=== PATIENT | male | born 1980 | race Caucasian/White ===

== ENCOUNTER 2019-04-03 15:12 | Inpatient (IN) | payer OTHER ==
[2019-04-03 18:23] VITALS: BMI 19.5
--- NOTE | 2019-04-03 18:34 | HP ---
CIWA Score - Admission Criteria OASAS Guidelines: Admission for Medically Managed Detox: Requires at least one of the followin. CIWA greater than 12 2. Seizures within the past 24 hours 3. Delirium tremens within the past 24 hours 4. Hallucinations within the past 24 hours 5. Acute intervention needed for co occurring medical disorder 6. Acute intervention needed for co occurring psychiatric disorder 7. Severe withdrawal that cannot be handled at a lower level of care (continued vomiting, continued diarrhea, abnormal vital signs) requiring intravenous medication and/or fluids 8. Admission ROS BHS - HPI Chief Complaint: I am here for rehab because I need help. Allergies/Adverse Reactions: Allergies Allergy/AdvReac Type Severity Reaction Status Date / Time cashew nut Allergy Severe Swelling Verified 04/03/19 18:10 sertraline [From Zoloft] Allergy Severe Verified 04/03/19 18:10 haloperidol [From Haldol] AdvReac Intermediate Verified 04/03/19 18:10 History of Present Illness: pt was in [facility] 04/01/19 and discharged today for hallucination pt has d/c papers to indicate he is on lithium and zyprexa today however, pt is on paliperidone last received on 03/30/19. pt was placed on paliperidone by his pcp because he is hep c and didnt want to affect his liver any further. Exam Limitations: No Limitations - Ebola screening Have you traveled outside of the country in the last 21 days: No (N) Have you had contact with anyone from an Ebola affected area: No Have you been sick,other than usual withdrawal symptoms: No Do you have a fever: No - Review of Systems Constitutional: Changes in sleep, Unintentional Wgt. Loss EENT: reports: No Symptoms Reported Respiratory: reports: Cough, Productive cough (greenish/yellowish) Cardiac: reports: Lightheadedness GI: reports: Constipated, Poor Fluid Intake : reports: Burning Musculoskeletal: reports: Back Pain, Joint Pain Integumentary: reports: No Symptoms Reported Neuro: reports: Headache Endocrine: reports: No Symptoms Reported Hematology: reports: No Symptoms Reported Psychiatric: reports: Judgement Intact, Mood/Affect Appropiate, Orientated x3, Agitated, Anxious Other Systems: Reviewed and Negative Patient History - Patient Medical History Hx Anemia: No Hx Asthma: No Hx Chronic Obstructive Pulmonary Disease (COPD): No Hx Cancer: No Hx Cardiac Disorders: No Hx Congestive Heart Failure: No Hx Hypertension: No Hx Hypercholesterolemia: No Hx Pacemaker: No HX Cerebrovascular Accident: No Hx Seizures: No Hx Dementia: No Hx Diabetes: No Hx Gastrointestinal Disorders: No Hx Liver Disease: No Hx Genitourinary Disorders: No Hx Sexually Transmitted Disorders: No Hx Renal Disease (ESRD): No Hx Thyroid Disease: No Hx Human Immunodeficiency Virus (HIV): No (pt denies) Hx Hepatitis C: Yes (no treatment received yet) Hx Depression: Yes Hx Suicide Attempt: Yes (2003 last tried to hurt self by drug OD. denies any S/ H ideations today) Hx Bipolar Disorder: Yes Hx Schizophrenia: Yes - Patient Surgical History Past Surgical History: No - PPD History Previous Implant?: Yes Documented Results: Negative w/o proof PPD to be Administered?: Yes - Reproductive History Patient is a Female of Child Bearing Age (11 -55 yrs old): No - Smoking Cessation Smoking history: Current every day smoker Have you smoked in the past 12 months: Yes Aproximately how many cigarettes per day: 10 Hx Chewing Tobacco Use: No Initiated information on smoking cessation: Yes 'Breaking Loose' booklet given: 04/03/19 - Substance & Tx. History Hx Alcohol Use: No Hx Substance Use: Yes Substance Use Type: Cocaine, Heroin Hx Substance Use Treatment: Yes (cannot remember when/where.) - Substances abused Heroin Substance route: Inhalation Frequency: Daily Amount used: 6 bags Age of first use: 23 Date of last use: 03/27/19 Crack Substance route: Smoking Frequency: Daily Amount used: $150 worth Age of first use: 20 Date of last use: 03/27/19 Family Disease History - Family Disease History Family History: Denies Admission Physical Exam S - Vital Signs Vital Signs: Vital Signs - 24 hr 04/03/19 18:09 Temperature 98.5 F Pulse Rate 78 Respiratory 18 Rate Blood Pressure 120/74 - Physical General Appearance: Yes: Appropriately Dressed, Moderate Distress, Thin, Irritable, Anxious HEENTM: Yes: Hearing grossly Normal, Normal Voice, Rhinorrhea Respiratory: Yes: Lungs Clear, Normal Breath Sounds, No Respiratory Distress Neck: Yes: Within Normal Limits Breast: Yes: Within Normal Limits Cardiology: Yes: Regular Rhythm, Regular Rate, S1, S2 Abdominal: Yes: Normal Bowel Sounds, Non Tender, Soft Genitourinary: Yes: Within Normal Limits Back: Yes: Normal Inspection Musculoskeletal: Yes: Back pain, Muscle Pain Extremities: Yes: Normal Capillary Refill, Normal Inspection Neurological: Yes: Fully Oriented, Alert, Normal Response Integumentary: Yes: Normal Color, Track Turner (pt also IVD when he choose too besides sniff.) Lymphatic: Yes: Within Normal Limits - Diagnostic (1) Heroin abuse Current Visit: Yes Status: Chronic (2) Crack cocaine use Current Visit: Yes Status: Chronic (3) Nicotine dependence Current Visit: Yes Status: Chronic Qualifiers: Nicotine product type: cigarettes Substance use status: uncomplicated Qualified Code(s): F17.210 - Nicotine dependence, cigarettes, uncomplicated Cleared for Admission S - Detox or Rehab [facility] Level of Care: Medically Managed Claeared for Rehab Admission: Yes Inpatient Rehab Admission - Rehab Decision to Admit Inpatient rehab admission?: Yes - Initial Determination Are CD services needed?: Yes Free of communicable disease: Yes Not in need of hospitalization: Yes - Rehab Admission Criteria Previous failed treatment: Yes Poor recovery environment: Yes Comorbidities: Yes Lacks judgement: Yes Patient is meeting Inpatient Rehab admission criteria:: Yes
[2019-04-03] MEDS ORDERED: MAGNESIUM CITRATE 300 ML BOTTLE PO PRN (18:55)
[2019-04-03] MEDS ORDERED: ACETAMINOPHEN 325 MG TABLET (FP) PO PRN (18:55)
[2019-04-03] MEDS ORDERED: MENTHOL/PHENOL 1 EACH UD MM PRN (18:55)
[2019-04-03] MEDS ORDERED: LOPERAMIDE HCL 2 MG CAPSULE PO PRN (18:55)
[2019-04-03] MEDS ORDERED: NICOTINE POLACRILEX 4 MG GUM BC PRN (18:55)
[2019-04-03] MEDS ORDERED: MAG HYDROX/AL HYDROX/SIMETH 30 ML UNIT-DOSE CUP PO PRN (18:55)
[2019-04-03] MEDS ORDERED: guaiFENesin 200 MG/10 ML 10 ML UNIT-DOSE CUPS PO PRN (18:55)
[2019-04-03] MEDS ORDERED: IBUPROFEN 400 MG TABLET (FP) PO PRN (18:55)
[2019-04-03] MEDS ORDERED: MAGNESIUM HYDROX 2400MG/30ML ORAL SUSPENSION 30 ML CUP PO PRN (18:55)
[2019-04-03] MEDS ORDERED: P-EPHED 60MG/TRIPROLIDI 2.5MG TABLET PO PRN (18:55)
[2019-04-03] MEDS ORDERED: TUBERCULIN PPD 5 TU/0.1ML VIAL ID ONE ×2 (20:43→23:41)
[2019-04-03] MEDS: THIAMINE HCL 100 MG TABLET (FP) PO SCH (21:10)
[2019-04-03] MEDS ORDERED: MELATONIN 5 MG TABLETS PO PRN (22:00)
[2019-04-04 09:40] LABS: HEMATOCRIT 47.2 % (35.4-49); HEMOGLOBIN 15.7 GM/dL (11.7-16.9); MCH 31.7 pg (25.7-33.7); MCHC 33.2 g/dl (32.0-35.9); MEAN CELL VOLUME 95.6 fl (80-96); PLATELET COUNT 275 K/MM3 (134-434); RBC 4.94 M/mm3 (4.00-5.60); RDW 14.9 % (11.9-15.9); WHITE BLOOD COUNT 6.9 K/mm3 (4.0-10.0)
[2019-04-04 09:59] LABS: ALBUMIN 3.8 g/dl (3.4-5.0); BILIRUBIN,TOTAL 1.1 mg/dL (0.2-1); CALCIUM 9.3 mg/dL (8.5-10.1); CREATININE 0.8 mg/dL (0.55-1.3); POTASSIUM 4.2 mmol/L (3.5-5.1)
[2019-04-04] MEDS: PRENATAL VITAMINS W/ FOLIC ACID TABLET (FP) PO SCH (09:59)
[2019-04-04] MEDS: NICOTINE 21 MG/24 HOURS TOPICAL PATCH TD SCH (09:59)
--- NOTE | 2019-04-04 17:19 | EKG ---
Test Reason : Blood Pressure : / mmHG Vent. Rate : 068 BPM Atrial Rate : 068 BPM P-R Int : 130 ms QRS Dur : 098 ms QT Int : 442 ms P-R-T Axes : 055 035 049 degrees QTc Int : 469 ms NORMAL SINUS RHYTHM NORMAL ECG NO PREVIOUS ECGS AVAILABLE Confirmed by SHANTELL MANN MD ([id number]) on 04/04/2019 5:19:28 PM Referred By: Confirmed By:SHANTELL MANN MD
[2019-04-04] MEDS: THIAMINE HCL 100 MG TABLET (FP) PO SCH (21:16)
[2019-04-05] MEDS: NICOTINE 21 MG/24 HOURS TOPICAL PATCH TD SCH (10:28)
[2019-04-05] MEDS: hydrOXYzine PAMOATE 50 MG CAPSULE (FP) PO PRN (10:28)
[2019-04-05] MEDS: PRENATAL VITAMINS W/ FOLIC ACID TABLET (FP) PO SCH (10:28)
--- NOTE | 2019-04-05 13:47 | CONSULT ---
[facility] Psychiatric Consult - Data Date of interview: 04/05/19 Admission source: [facility]. Court-mandated. Identifying data: Direct admission to [address] for this 39 y/o male, court-mandated for substance abuse treatment (heroin, cannabis, cocaine). Co-morbidity : schizoaffective disorder. Patient is single, no dependents, homeless, unemployed and deprived of income. Substance Abuse History: Confirmed by patient in this session. Smoking history: Current every day smoker. Have you smoked in the past 12 months: Yes. Aproximately how many cigarettes per day: 10. Hx Chewing Tobacco Use: No. Initiated information on smoking cessation: Yes. 'Breaking Loose' booklet given : 04/03/19. - Substance & Tx. History. Hx Alcohol Use: No. Hx Substance Use: Yes. Substance Use Type: Cocaine, Heroin. Hx Substance Use Treatment: Yes ( cannot remember when/where.). - Substances abused. Heroin. Substance route : Inhalation. Frequency: Daily. Amount used: 6 bags. Age of first use: 23. Date of last use: 03/27/19. Crack. Substance route: Smoking. Frequency: Daily. Amount used: $150 worth. Age of first use: 20. Date of last use: 03/27 Medical History: Hepatitis C. Psychiatric History: First psychiatric hospitalization : age 17. Diagnosed with Schizoaffective Disorder. Medicated with lithium + paliperidone (primary care physician). No psychiatric OPD care. Mutiple psychiatric hospitalizations ( [facility], [facility], [facility]). Mr Cruz admits to one suicide attempt via overdose with zolpidem (2003). Currently on methadone maintenance (40 mg/day). Physical/Sexual Abuse/Trauma History: Patient denies. Additional Comment: No toxicology available. Mental Status Exam - Mental Status Exam Alert and Oriented to: Time, Place, Person Cognitive Function: Grossly Intact Patient Appearance: Well Groomed (tall stature, emaciated) Mood: Nervous, Withdrawn Affect: Mood Congruent, Constricted Patient Behavior: Fatigued, Cooperative Speech Pattern: Clear Voice Loudness: Normal Thought Process: Goal Oriented Thought Disorder: Not Present Hallucinations: Denies Suicidal Ideation: Denies Homicidal Ideation: Denies Insight/Judgement: Poor Sleep: Poorly, Difficulty falling asleep Appetite: Poor, Weight loss Muscle strength/Tone: Normal Gait/Station: Normal Psychiatric Findings - Problem List ([place] 1, 2,3) (1) Opioid dependence on agonist therapy Current Visit: Yes Status: Chronic (2) Cocaine dependence Current Visit: Yes Status: Chronic (3) Cannabis abuse Current Visit: Yes Status: Chronic (4) Nicotine dependence Current Visit: Yes Status: Chronic Qualifiers: Nicotine product type: cigarettes Substance use status: uncomplicated Qualified Code(s): F17.210 - Nicotine dependence, cigarettes, uncomplicated (5) Schizoaffective disorder Current Visit: Yes Status: Chronic (6) Substance induced mood disorder Current Visit: Yes Status: Chronic (7) Non-compliance Current Visit: Yes Status: Chronic - Initial Treatment Plan Initial Treatment Plan: Psychoeducation. Sleep hygiene. Support. [place] level requested. AA/NA meetings. Observation.
[2019-04-05 17:03] LABS: PH,URINE 8.5 (5.0-8.0); URINE APPEARANCE CLEAR; URINE BILIRUBIN NEGATIVE (NEGATIVE); URINE COLOR YELLOW; URINE GLUCOSE (UA) NEGATIVE (NEGATIVE); URINE KETONE NEGATIVE (NEGATIVE); URINE LEUK ESTERASE NEGATIVE (NEGATIVE); URINE NITRITE NEGATIVE (NEGATIVE); URINE PROTEIN NEGATIVE (NEGATIVE); URINE UROBILINOGEN 0.2 mg/dL (0.2-1.0)
[2019-04-05] MEDS: THIAMINE HCL 100 MG TABLET (FP) PO SCH (21:27)
[2019-04-06] MEDS: PRENATAL VITAMINS W/ FOLIC ACID TABLET (FP) PO SCH (09:30)
[2019-04-06] MEDS: NICOTINE 21 MG/24 HOURS TOPICAL PATCH TD SCH (09:30)
[2019-04-06] MEDS: THIAMINE HCL 100 MG TABLET (FP) PO SCH (21:11)
[2019-04-07] MEDS: NICOTINE 21 MG/24 HOURS TOPICAL PATCH TD SCH (09:32)
[2019-04-07] MEDS: PRENATAL VITAMINS W/ FOLIC ACID TABLET (FP) PO SCH (09:32)
[2019-04-07] MEDS: THIAMINE HCL 100 MG TABLET (FP) PO SCH (21:11)
[2019-04-08 07:23] VITALS: TEMP 98.1
[2019-04-08] MEDS: PRENATAL VITAMINS W/ FOLIC ACID TABLET (FP) PO SCH (10:16)
[2019-04-08] MEDS: NICOTINE 21 MG/24 HOURS TOPICAL PATCH TD SCH (10:16)
[2019-04-08] MEDS: THIAMINE HCL 100 MG TABLET (FP) PO SCH (21:10)
[2019-04-09] MEDS ORDERED: PANTOPRAZOLE 20 MG TABLET (FP) PO ONE (01:23)
[2019-04-09] MEDS ORDERED: cloNIDine HCL 0.1 MG TABLET PO ONE (01:29)
[2019-04-09] MEDS: hydrOXYzine PAMOATE 50 MG CAPSULE (FP) PO PRN (01:41)
--- NOTE | 2019-04-09 02:32 | DS ---
[facility] Detox Discharge Summary Admission Date: 04/03/19 Discharge Date: 04/09/19 - History Present History: Cannabis Dependence, Cocaine Dependence, Opioid Dependence Additional Comments: CLIENT SIGNING OUT AMA DESPITE ALL ATTEMPTS TO HAVE CLIENT RECONSIDER AND CONTINUE TXMENT. CLIENT STATES HE WANTS TO LEAVE AND NO LONGER WANTS TO CONTINUE TXMENT. HE IS A/O X3 AGGITATED. DENIES SI/HI/AVH AT THIS TIME. AYMPTOMATIC ELEVATED B/P-RELATED TO PT BEING AGITATED - Physical Exam Results Vital Signs: Vital Signs Temperature 98.1 F 04/08/19 06:30 Pulse Rate 65 04/08/19 06:30 Respiratory Rate 18 04/09/19 00:30 Blood Pressure 151/89 04/08/19 06:30 O2 Sat by Pulse Oximetry (%) Pertinent Admission Physical Exam Findings: s/p detox transfered from [facility] for rehab - Treatment Hospital Course: Discharged Condition Good - Medication Discharge Medications: Ambulatory Orders [place] Carbonate [Eskalith -] 600 mg PO BID 04/03/19 Paliperidone [Paliperidone ER] 6 mg PO DAILY 04/03/19 - Diagnosis (1) Cannabis abuse Current Visit: Yes Status: Chronic (2) Cocaine dependence Current Visit: Yes Status: Chronic (3) Crack cocaine use Current Visit: Yes Status: Chronic (4) Nicotine dependence Current Visit: Yes Status: Chronic Qualifiers: Nicotine product type: cigarettes Substance use status: uncomplicated Qualified Code(s): F17.210 - Nicotine dependence, cigarettes, uncomplicated (5) Schizoaffective disorder Current Visit: Yes Status: Chronic (6) Substance induced mood disorder Current Visit: Yes Status: Chronic (7) Heroin abuse Current Visit: Yes Status: Chronic (8) Non-compliance Current Visit: Yes Status: Chronic - AMA Did Patient Leave Against Medical Advice: Yes
--- NOTE | 2019-04-09 02:37 | PN ---
[facility] Progress Note Note: [facility] Discharge Summary Patient Name: KILO MILLER Date of : 78 Patient Status: Inpatient Attending Provider: Camila Hartman Date: 04/09/19 02:31 Initialization Date: 04/09/19 02:31 [facility] Discharge Summary Admission Date: 04/03/19 Discharge Date: 04/09/19 - History Present History: Cannabis Dependence, Cocaine Dependence, Opioid Dependence Additional Comments: CLIENT SIGNING OUT AMA DESPITE ALL ATTEMPTS TO HAVE CLIENT RECONSIDER AND CONTINUE TXMENT. CLIENT STATES HE WANTS TO LEAVE AND NO LONGER WANTS TO CONTINUE TXMENT. HE IS A/O X3 AGITATED. DENIES SI/HI/AVH AT THIS TIME. ASYMPTOMATIC ELEVATED B/P-POSSIBLY RELATED TO PT BEING AGITATED. D/W CLIENT RISK FOR OVERDOSE AND POSSIBLE AND DECREASE TOLERANCE. CLIENT VERBALIZES UNDERSTANDING AND ACCEPTS RISKS. DECLINES NARCAN KIT. "I WANT TO LEAVE" - Physical Exam Results Vital Signs: Vital Signs Temperature 98.1 F 04/08/19 06:30 Pulse Rate 58 L 04/09/19 01:25 Respiratory Rate 18 04/09/19 00:30 Blood Pressure 153/98 04/09/19 01:25 O2 Sat by Pulse Oximetry (%) Pertinent Admission Physical Exam Findings: [facility] Laboratory Tests 04/04/19 04/04/19 04/04/19 07:55 07:55 07:55 WBC 6.9 RBC 4.94 Hgb 15.7 Hct 47.2 MCV 95.6 MCH 31.7 MCHC 33.2 RDW 14.9 Plt Count 275 MPV 10.0 Sodium 139 Potassium 4.2 Chloride 107 Carbon Dioxide 29 Anion Gap 3 L BUN 5 L Creatinine 0.8 Est GFR (CKD-EPI)AfAm 129.51 Est GFR (CKD-EPI)NonAf 111.74 Random Glucose 91 Calcium 9.3 Total Bilirubin 1.1 H AST 29 ALT 76 H Alkaline Phosphatase 120 H Total Protein 7.0 Albumin 3.8 Urine Color Urine Appearance Urine pH Ur Specific [place] Urine Protein Urine Glucose (UA) Urine Ketones Urine Blood Urine Nitrite Urine Bilirubin Urine Urobilinogen Ur Leukocyte Esterase [place] RPR Titer Nonreactive 04/05/19 04/06/19 10:45 09:00 WBC RBC Hgb Hct MCV MCH MCHC RDW Plt Count MPV Sodium Potassium Chloride Carbon Dioxide Anion Gap BUN Creatinine Est GFR (CKD-EPI)AfAm Est GFR (CKD-EPI)NonAf Random Glucose Calcium Total Bilirubin AST ALT Alkaline Phosphatase Total Protein Albumin Urine Color Yellow Urine Appearance Clear Urine pH 8.5 H Ur Specific [place] 1.016 Urine Protein Negative Urine Glucose (UA) Negative Urine Ketones Negative Urine Blood Negative Urine Nitrite Negative Urine Bilirubin Negative Urine Urobilinogen 0.2 Ur Leukocyte Esterase Negative [place] 0.4 L RPR Titer - Treatment Hospital Course: Discharged Condition Good - Medication Discharge Medications: Ambulatory Orders [place] Carbonate [Eskalith -] 600 mg PO BID 04/03/19 Paliperidone [Paliperidone ER] 6 mg PO DAILY 04/03/19 - Diagnosis (1) Cannabis abuse Current Visit: Yes Status: Chronic (2) Cocaine dependence Current Visit: Yes Status: Chronic (3) Crack cocaine use Current Visit: Yes Status: Chronic (4) Nicotine dependence Current Visit: Yes Status: Chronic Qualifiers: Nicotine product type: cigarettes Substance use status: uncomplicated Qualified Code(s): F17.210 - Nicotine dependence, cigarettes, uncomplicated (5) Schizoaffective disorder Current Visit: Yes Status: Chronic (6) Substance induced mood disorder Current Visit: Yes Status: Chronic (7) Heroin abuse Current Visit: Yes Status: Chronic (8) Non-compliance Current Visit: Yes Status: Chronic - AMA Did Patient Leave Against Medical Advice: Yes
[2019-04-09 03:18] VITALS: BP 153/98; PULSE 58
[2019-04-09] MEDS ORDERED: PANTOPRAZOLE 20 MG TABLET (FP) PO SCH (10:00)
== END 2019-04-09 02:28 | disposition left against medical advice (07) | DRG 770 ==
LOC: YASAS 15:12 → Y5N 19:31
PROVIDERS: ADMIT Neuromusculoskeletal Medicine & OMM; ATTEND Neuromusculoskeletal Medicine & OMM
PROC: HZ42ZZZ Group Counseling for Substance Abuse Treatment, Cognitive-Behavioral (ICD-10-PCS; principal; 2019-04-03)
DX: F11.20 Opioid dependence, uncomplicated (principal); F14.20 Cocaine dependence, uncomplicated; F12.10 Cannabis abuse, uncomplicated; F17.210 Nicotine dependence, cigarettes, uncomplicated; F25.9 Schizoaffective disorder, unspecified; F19.24 Other psychoactive substance dependence with psychoactive substance-induced mood disorder; B18.2 Chronic viral hepatitis C; Z91.19 Patient's noncompliance with other medical treatment and regimen; Z91.048 Other nonmedicinal substance allergy status; Z91.5 Personal history of self-harm
CPT/HCPCS: 36415; 80053; 80178; 81003; 85027; 86593; 93005; 93010; J0735

== ENCOUNTER 2023-07-12 16:43 | Inpatient (IN) | payer OTHER ==
[2023-07-12] MEDS ORDERED: NICOTINE POLACRILEX 2 MG GUM BUC PRN (22:21)
[2023-07-12] MEDS ORDERED: METHOCARBAMOL 500 MG TABLET PO PRN (22:21)
[2023-07-12] MEDS ORDERED: POLYETHYLENE GLYCOL (HEALTHYLAX) 3350 17 GM PACKET PO PRN (22:21)
[2023-07-12] MEDS ORDERED: BISMUTH SUBSALICYLATE 524 MG/30 ML PO PRN (22:21)
[2023-07-12] MEDS ORDERED: IBUPROFEN 400 MG TABLET (FP) PO PRN (22:21)
[2023-07-12] MEDS ORDERED: NALOXONE HCL (KLOXXADO) 8 MG SPRAY NS PRN (22:21)
[2023-07-12] MEDS ORDERED: P-EPHED 60MG/TRIPROLIDI 2.5MG TABLET PO PRN (22:21)
[2023-07-12] MEDS ORDERED: LOPERAMIDE HCL 2 MG CAPSULE PO PRN (22:21)
[2023-07-12] MEDS ORDERED: hydrOXYzine PAMOATE 25 MG CAPSULE (FP) PO PRN (22:21)
[2023-07-12] MEDS ORDERED: IBUPROFEN 600 MG TABLET (FP) PO PRN (22:21)
[2023-07-12] MEDS ORDERED: MAG HYDROX/AL HYDROX/SIMETH 30 ML UNIT-DOSE CUP PO PRN (22:21)
[2023-07-12] MEDS ORDERED: guaiFENesin 600 MG TABLET.ER (FP) PO PRN (22:21)
[2023-07-12] MEDS ORDERED: BENZOCAINE/MENTHOL (CHLORASEPTIC ) LOZENGE MM PRN (22:21)
[2023-07-12] MEDS ORDERED: NALOXONE HCL 0.4 MG/ML VIAL IM PRN (22:21)
[2023-07-12] MEDS ORDERED: BENZONATATE 200 MG CAPSULE PO PRN (22:21)
[2023-07-12] MEDS ORDERED: MAGNESIUM HYDROX 2400MG/30ML ORAL SUSPENSION 30 ML CUP PO PRN (22:21)
[2023-07-12] MEDS ORDERED: DICYCLOMINE HCL 10 MG CAPSULE PO PRN (22:21)
[2023-07-12] MEDS ORDERED: ONDANSETRON *ODT* 4 MG TABLET SL PRN (22:21)
[2023-07-12] MEDS ORDERED: ACETAMINOPHEN 325 MG TABLET (FP) PO PRN (22:21)
[2023-07-13] MEDS: BACITRACIN 0.9 GM PACKET TP SCH ×3 (03:49→22:13)
[2023-07-13] MEDS: PRENATAL VITAMINS W/ FOLIC ACID TABLET (FP) PO SCH (10:24)
[2023-07-13 11:08] LABS: HEMATOCRIT 35.7 % (35.4-49); HEMOGLOBIN 11.1 GM/dL (11.7-16.9); MCH 23.6 pg (25.7-33.7); MEAN CELL VOLUME 75.9 fl (80-96); MEAN PLT VOLUME 8.9 fl (7.5-11.1); PLATELET COUNT 327 10^3/uL (134-434); RDW 18.4 % (11.9-15.9); WHITE BLOOD COUNT 5.4 K/mm3 (4.0-10.0)
[2023-07-13 11:12] LABS: POTASSIUM 3.8 mmol/L (3.5-5.1)
[2023-07-13 11:15] LABS: CALCIUM 8.1 mg/dL (8.5-10.1)
[2023-07-13 11:16] LABS: ALBUMIN 2.7 g/dl (3.4-5.0)
[2023-07-13 11:17] LABS: BLOOD UREA NITROGEN 8.1 mg/dL (7-18)
[2023-07-13 11:19] LABS: CREATININE 0.7 mg/dL (0.55-1.3)
[2023-07-13 11:21] LABS: BILIRUBIN,TOTAL 0.6 mg/dL (0.2-1); TOT PROT 7.2 g/dl (6.4-8.2)
[2023-07-13] MEDS ORDERED: THIAMINE HCL 100 MG TABLET (FP) PO SCH (22:00)
[2023-07-13] MEDS ORDERED: MELATONIN 5 MG TABLETS PO SCH (22:00)
[2023-07-14] MEDS ORDERED: cloNIDine HCL 0.1 MG TABLET PO PRN (08:36)
[2023-07-14] MEDS ORDERED: methaDONE HCL 10 MG TABLET (FOR DETOX USE ONLY) PO ONE ×2 (08:36→10:00)
[2023-07-14 09:29] VITALS: BP 124/77; PULSE 67; RESP 16; TEMP 97.7
[2023-07-14] MEDS: BACITRACIN 0.9 GM PACKET TP SCH (10:51)
[2023-07-14] MEDS: PRENATAL VITAMINS W/ FOLIC ACID TABLET (FP) PO SCH (10:51)
[2023-07-16] MEDS ORDERED: methaDONE HCL 10 MG TABLET (FOR DETOX USE ONLY) PO ONE (10:00)
[2023-07-18] MEDS ORDERED: methaDONE HCL 10 MG TABLET (FOR DETOX USE ONLY) PO ONE (10:00)
== END 2023-07-14 10:58 | disposition left against medical advice (07) | DRG 894 ==
LOC: YASAS 16:43 → Y3N 23:52
PROVIDERS: ADMIT Allergy & Immunology; ATTEND Allergy & Immunology
PROC: HZ2ZZZZ Detoxification Services for Substance Abuse Treatment (ICD-10-PCS; principal; 2023-07-12)
DX: F11.23 Opioid dependence with withdrawal (principal); F14.20 Cocaine dependence, uncomplicated; F12.20 Cannabis dependence, uncomplicated; F17.210 Nicotine dependence, cigarettes, uncomplicated; F25.9 Schizoaffective disorder, unspecified; F19.24 Other psychoactive substance dependence with psychoactive substance-induced mood disorder; R26.89 Other abnormalities of gait and mobility; Z28.310 Unvaccinated for COVID-19; Z28.9 Immunization not carried out for unspecified reason; Z88.8 Allergy status to other drugs, medicaments and biological substances; Z91.199 Patient's noncompliance with other medical treatment and regimen due to unspecified reason
CPT/HCPCS: 36415; 80053; 85027; 86780; 87635